=== PATIENT | female | born 1965 | race American Indian/Alaskan Native ===

== ENCOUNTER 2017-10-03 20:59 | Inpatient (IN) | payer MEDICAID ==
[2017-10-03 21:05] VITALS: BMI 21.4
--- NOTE | 2017-10-03 21:34 | ED PDOC ---
Arrival/HPI - General Chief Complaint: GI Problem Time Seen by Provider: 10/03/17 21:04 Historian: Patient - History of Present Illness Narrative History of Present Illness (Text): 10/03/17 21:34 Ines Waters is a 52 year old female, whose past medical history includes stomach cancer currently undergoing chemotherapy, hypertension, and diabetes, who presents to the emergency department complaining of vomiting. Patient states been experiencing intermittent nausea with multiple episodes of vomiting and some abdominal cramping for the past week. Patient states her last round of chemotherapy was 2 weeks ago, but notes she does not usually get nausea or vomiting following chemo. Patient denies any fever, chills, chest pain, shortness of breath, diarrhea, urinary symptoms, back pain, neck pain, headache , dizziness, or any other complaints. Heme/Onc: Dr. Miles Symptom Onset: Gradual Symptom Course: Unchanged Activities at Onset: Light Context: Home Past Medical History - Provider Review Nursing Documentation Reviewed: Yes - Cardiac Hx Hypertension: Yes - Pulmonary Hx Asthma: Yes - Neurological Hx Neurological Disorder: No - HEENT Hx HEENT Disorder: No - Renal Hx Renal Disorder: No - Endocrine/Metabolic Hx Endocrine Disorders: No - Hematological/Oncological Hx Blood Disorders: No - Integumentary Hx Dermatological Disorder: No - Musculoskeletal/Rheumatological Hx Musculoskeletal Disorders: No - Gastrointestinal Hx Gastrointestinal Disorders: Yes Other/Comment: ca stomach. - Genitourinary/Gynecological Hx Genitourinary Disorders: No - Psychiatric Hx Psychophysiologic Disorder: No Hx Substance Use: No Family/Social History - Physician Review Nursing Documentation Reviewed: Yes Family/Social History: Unknown Family HX Smoking Status: Never Smoked Hx Alcohol Use: No Hx Substance Use: No Allergies/Home Meds Allergies/Adverse Reactions: Allergies aspirin Allergy (Verified 10/03/17 21:06) ANAPHYLAXIS Home Medications: Home Meds Medication Instructions Recorded Confirmed Bisoprolol/HCTZ [Ziac 5 MG-6.25 MG] 1 tab PO DAILY 10/03/17 10/03/17 Losartan/Hydrochlorothiazide 1 each PO DAILY 10/03/17 10/03/17 [Losartan-Hctz 100-25 mg Tab] Metformin HCl [Glucophage] 500 mg PO DAILY 10/03/17 10/03/17 No Known Home Med 10/03/17 10/03/17 Omeprazole 40 mg PO DAILY 10/03/17 10/03/17 Oxycodone HCl [Oxycontin] 10 mg PO Q6 PRN 10/03/17 10/03/17 Review of Systems - Physician Review All systems were reviewed & negative as marked: Yes - Review of Systems Constitutional: Normal. absent: Fevers Eyes: Normal ENT: Normal Respiratory: Normal. absent: SOB, Cough Cardiovascular: Normal. absent: Chest Pain Gastrointestinal: Abdominal Pain, Nausea, Vomiting. absent: Diarrhea Genitourinary Female: Normal. absent: Dysuria, Frequency, Hematuria, Urine Output Changes Musculoskeletal: Normal. absent: Back Pain, Neck Pain Skin: Normal. absent: Rash Neurological: Normal. absent: Headache, Dizziness Endocrine: Normal Hemo/Lymphatic: Normal Psychiatric: Normal Physical Exam Vital Signs Reviewed: Yes Vital Signs Temp Pulse Resp BP Pulse Ox 10/03/17 21:11 98.2 F 76 18 169/126 H 100 Temperature: Afebrile Blood Pressure: Hypertensive Pulse: Regular Respiratory Rate: Normal Appearance: Positive for: Well-Appearing, Non-Toxic, Comfortable Pain Distress: None Mental Status: Positive for: Alert and Oriented X 3 - Systems Exam Head: Present: Atraumatic, Normocephalic Pupils: Present: PERRL Extroacular Muscles: Present: EOMI Conjunctiva: Present: Normal Mouth: Present: Moist Mucous Membranes Neck: Present: Normal Range of Motion Respiratory/Chest: Present: Clear to Auscultation, Good Air Exchange. No: Respiratory Distress, Accessory Muscle Use Cardiovascular: Present: Regular Rate and Rhythm, Normal S1, S2. No: Murmurs Abdomen: Present: Tenderness (upper abdomen), Normal Bowel Sounds. No: Distention, Peritoneal Signs, Rebound, Guarding Back: Present: Normal Inspection Upper Extremity: Present: Normal Inspection. No: Cyanosis, Edema Lower Extremity: Present: Normal Inspection. No: Edema Neurological: Present: GCS=15, CN II-XII Intact, Speech Normal Skin: Present: Warm, Dry, Normal Color. No: Rashes Psychiatric: Present: Alert, Oriented x 3, Normal Insight, Normal Concentration Medical Decision Making ED Course and Treatment: 10/03/17 21:34 Impression: 52 year old female complaining of intermittent nausea, vomiting, and some abdominal cramping for 1 week. Plan: -- EKG -- CXR -- Labs, lipase -- IV fluids -- Zofran -- Pepcid -- Morphine -- Reassess and disposition Progress Notes: Reviewed EKG, NSR at 74 bpm. Non-specific T wave changes. 10/03/17 23:11 CXR reviewed, shows no acute processes. 10/04/17 01:42 CT Abdomen and Pelvis shows: Lung bases: Unremarkable. No mass. No consolidation. ABDOMEN: Liver: Hepatic steatosis. Gallbladder and bile ducts: Unremarkable. No calcified stones. No ductal dilation. Pancreas: Unremarkable. No mass. No ductal dilation. Spleen: Unremarkable. No splenomegaly. Adrenals: Unremarkable. No mass. Kidneys and ureters: Unremarkable. No solid mass. No hydronephrosis. Stomach and bowel: Fluid-filled small bowel loops. Small to moderate amount of retained stool in colon. Appendix: No findings to suggest acute appendicitis. PELVIS: Bladder: Unremarkable. No mass. Reproductive: Myomatous uterus. ABDOMEN and PELVIS: Intraperitoneal space: Small amount of perihepatic free fluid. Small amount of perisplenic free fluid. Small to moderate amount of pelvic ascites. No free air. Bones/joints: No acute fracture. No dislocation. Soft tissues: Subcutaneous edema. Vasculature: Unremarkable. No abdominal aortic aneurysm. Lymph nodes: Enlarged left para-aortic lymph node measuring 1.7 CM. IMPRESSION: 1. Small to moderate amount of ascites. 2. Enlarged retroperitoneal lymph node 3. Myomatous uterus. 4. Remainder of findings as above. 10/04/17 01:57 Case discussed with medical insurance verifier civil engineering design draftsperson, who is aware and agrees with plan. 10/04/17 02:[address] Sheree Kyle, who is aware and agrees with plan. Accepts pt in to hospitalist service. Pt will go to [facility] observation for abdominal pain and neutropenia. - Lab Interpretations Lab Results: 10/03/17 21:15 10/03/17 21:15 Lab Results 10/03/17 21:15: WBC 2.0 L*, RBC 4.60, Hgb 11.9 L, Hct 36.0, MCV 78.3 L, MCH 25.9 , MCHC 33.1, RDW 16.9 H, Plt Count 286, MPV 10.1, Gran % 3.0 L, Lymph % (Auto) 51.3 H, Cedar % (Auto) 44.2 H, Eos % (Auto) 1.0 L, Baso % (Auto) 0.5, Gran # 0.06 L, Lymph # (Auto) 1.0 L, Cedar # (Auto) 0.9 H, Eos # (Auto) 0.0, Baso # ( Auto) 0.01, Neutrophils % (Manual) Pending, Lymphocytes % (Manual) Pending, Monocytes % (Manual) Pending 10/03/17 21:15: Sodium 141, Potassium 3.4 L, Chloride 104, Carbon Dioxide 28, Anion Gap 13, BUN 6 L, Creatinine 0.7, Est GFR ( Amer) > 60, Est GFR (Non -Af Amer) > 60, Random Glucose 67 L, Calcium 9.0, Total Bilirubin 0.6, AST 33, ALT 21, Alkaline Phosphatase 48, Total Protein 6.3, Albumin 3.0, Globulin 3.3, Albumin/Globulin Ratio 0.9 L, Lipase 161 I have reviewed the lab results: Yes - RAD Interpretation Radiology Orders: 10/03/17 21:40 CHEST PORTABLE [RAD] Stat 10/04/17 00:06 ABD & PELVIS IV CONTRAST ONLY [CT] Stat Pcmh Specialist: ED Physician - EKG Interpretation Interpreted by ED Physician: Yes Type: 12 lead EKG - Medication Orders Current Medication Orders: Piperacillin Sod/Tazobactam Sod (Zosyn 3.375 In Ns 100ml) 100 mls @ 200 mls/hr IV STAT STA PRN Reason: Protocol Stop: 10/04/17 02:44 Discontinued Medications Famotidine (Pepcid) 20 mg IVP STAT STA Stop: 10/03/17 21:41 Last Admin: 10/03/17 21:58 Dose: 20 mg IVP Administration Document 10/03/17 21:58 AD (Rec: 10/03/17 21:58 AD [id number]) Charges for Administration # of IVP Administrations 1 Sodium Chloride (Sodium Chloride 0.9%) 1,000 mls @ 999 mls/hr IV .Q1H1M STA Stop: 10/03/17 22:40 Last Admin: 10/03/17 21:58 Dose: 999 mls/hr eMAR Start Stop Document 10/03/17 21:58 AD (Rec: 10/03/17 21:58 AD [id number]) Intravenous Solution Start Date 10/03/17 Start Time 21:58 Morphine Sulfate (Morphine) 2 mg IVP STAT STA Stop: 10/03/17 21:41 Last Admin: 10/03/17 22:25 Dose: 2 mg MAR Pain Assessment Document 10/03/17 22:25 AD (Rec: 10/03/17 22:26 AD [id number]) Pain Reassessment Is this a pain reassessment? No IVP Administration Document 10/03/17 22:25 AD (Rec: 10/03/17 22:26 AD [id number]) Charges for Administration # of IVP Administrations 1 Morphine Sulfate (Morphine) 4 mg IVP STAT STA Stop: 10/04/17 00:08 Last Admin: 10/04/17 00:19 Dose: 4 mg MAR Pain Assessment Document 10/04/17 00:19 AD (Rec: 10/04/17 00:19 AD [id number]) Pain Reassessment Is this a pain reassessment? No Presence of Pain Presence of Pain Yes Pain Scale Used Pain Scale Used Numeric Location Pain Location Body Site Abdomen Description Intensity of Pain at present 7 Pain Behavior Facial Grimacing IVP Administration Document 10/04/17 00:19 AD (Rec: 10/04/17 00:19 AD [id number]) Charges for Administration # of IVP Administrations 1 Ondansetron HCl (Zofran Inj) 4 mg IVP ONCE ONE Stop: 10/03/17 21:41 Last Admin: 10/03/17 21:58 Dose: 4 mg IVP Administration Document 10/03/17 21:58 AD (Rec: 10/03/17 21:58 AD [id number]) Charges for Administration # of IVP Administrations 1 - Scribe Statement The provider has reviewed the documentation as recorded by the аТтьяна Truong Provider Scribe Attestation: All medical record entries made by the Scribe were at my direction and personally dictated by me. I have reviewed the chart and agree that the record accurately reflects my personal performance of the history, physical exam, medical decision making, and the department course for this patient. I have also personally directed, reviewed, and agree with the discharge instructions and disposition. Disposition/Present on Arrival - Present on Arrival Any Indicators Present on Arrival: No History of DVT/PE: No History of Uncontrolled Diabetes: No Urinary Catheter: No History of Decub. Ulcer: No History Surgical Site Infection Following: None - Disposition Have Diagnosis and Disposition been Completed?: Yes Diagnosis: Abdominal pain, Neutropenia Disposition: HOSPITALIZED Disposition Time: 02:20 Patient Plan: Observation Patient Problems: Current Active Problems Problem Status Onset Abdominal pain Acute Neutropenia Acute Condition: STABLE Referrals: Iris Dalton MD [Primary Care Provider] - Follow up with primary Forms: [employer] ([place]an)
[2017-10-03] MEDS ORDERED: Sodium Chloride 0.9% 1,000 ML IV STA (21:40)
[2017-10-03 21:54] LABS: HEMOGLOBIN 11.9 g/dL (12.0-16.0); MEAN CELL VOLUME 78.3 fl (80.0-105.0); MEAN CORPUSCULAR HEMOGLOBIN 25.9 pg (25.0-35.0); MEAN CORPUSCULAR HGB CONC 33.1 g/dl (31.0-37.0); MEAN PLATELET VOLUME 10.1 fl (7.0-11.0); PLATELET COUNT 286 10^3/uL (120.0-450.0); RED CELL DISTRIBUTION WIDTH 16.9 % (11.5-14.5)
[2017-10-03 21:58] LABS: ALB/GLOB RATIO 0.9 (1.1-1.8); ALT/SGPT 21 U/L (7-56); AST/SGOT 33 U/L (14-36); BLOOD UREA NITROGEN 6 mg/dL (7-21); GFR AFRICAN-AMERICAN > 60; GFR NON-AFRICAN AMERICAN > 60; LIPASE 161 U/L (23-300)
[2017-10-03 23:38] LABS: BASO # 0.01 K/mm3 (0.0-2.0); BASO % 0.5 % (0.0-3.0); GRAN # 0.06 (1.4-6.5); LYMPH % 51.3 % (22.0-35.0); MONO # 0.9 (0.1-0.6); MONO % 44.2 % (1.0-6.0)
[2017-10-04] MEDS ORDERED: Iohexol 350 MG/100 ML VIAL ONE (00:19)
--- NOTE | 2017-10-04 00:59 | CT ---
EXAM: CT Abdomen and Pelvis With Intravenous Contrast CLINICAL HISTORY: 52 years old, female; Pain; Abdominal pain TECHNIQUE: Axial computed tomography images of the abdomen and pelvis with intravenous contrast. All CT scans at this facility use one or more dose reduction techniques, viz.: automated exposure control; ma/kV adjustment per patient size (including targeted exams where dose is matched to indication; i.e. head); or iterative reconstruction technique. Coronal and sagittal reformatted images were created and reviewed. CONTRAST: 100 mL of omnipaque administered intravenously. COMPARISON: No relevant prior studies available. FINDINGS: Lung bases: Unremarkable. No mass. No consolidation. ABDOMEN: Liver: Hepatic steatosis. Gallbladder and bile ducts: Unremarkable. No calcified stones. No ductal dilation. Pancreas: Unremarkable. No mass. No ductal dilation. Spleen: Unremarkable. No splenomegaly. Adrenals: Unremarkable. No mass. Kidneys and ureters: Unremarkable. No solid mass. No hydronephrosis. Stomach and bowel: Fluid-filled small bowel loops. Small to moderate amount of retained stool in colon. Appendix: No findings to suggest acute appendicitis. PELVIS: Bladder: Unremarkable. No mass. Reproductive: Myomatous uterus. ABDOMEN and PELVIS: Intraperitoneal space: Small amount of perihepatic free fluid. Small amount of perisplenic free fluid. Small to moderate amount of pelvic ascites. No free air. Bones/joints: No acute fracture. No dislocation. Soft tissues: Subcutaneous edema. Vasculature: Unremarkable. No abdominal aortic aneurysm. Lymph nodes: Enlarged left para-aortic lymph node measuring 1.7 CM. IMPRESSION: 1. Small to moderate amount of ascites. 2. Enlarged retroperitoneal lymph node 3. Myomatous uterus. 4. Remainder of findings as above.
[2017-10-04] MEDS ORDERED: Piperacillin/Tazobact 3.375 gm 100 ML IV STA (02:15)
[2017-10-04 02:47] LABS: ATYPICAL LYMPHOCYTE 6 % (0.0-0.0); BAND 4 % (0-2); EOSINOPHIL 1 % (0.0-3.0); LYMPHOCYTE 42 % (22.0-35.0); MONOCYTE 37 % (1.0-6.0); NEUTROPHIL 10 % (50.0-70.0); PLATELET ESTIMATE NORMAL (NORMAL)
--- NOTE | 2017-10-04 02:56 | CP.PCM.HP ---
History of Present Illness - History of Present Illness History of Present Illness: Katelin Guardado, PGY1, H&P for Dr Kadie Kyle: CC: "some red blood in vomit" 52 year old female, whose past medical history includes stomach cancer currently undergoing chemotherapy (last chemo 2 weeks ago), hypertension, and diabetes, presents for blood streaked vomit that started today. Pt states that she has chronic nausea, vomiting, and LUQ abdominal pain, related to her stomach cancer and current chemo. After a week of worsening vomit, she noted some bright red blood in her vomit yesterday, making her come to ED. Pt states that she had been retching for some time with decreased appetite and poor PO intake for past week. Denies fever, chills, cp, sob, diarrhea, melena, hematochezia, leg swelling, dizziness. Reports mild dysuria. In ED, pt had mildly elevated BP, wbc 2.0 neuts 10%, bandemia 4, hgb 11.9, MCV 78.3, gran 3%, K 3.4, BG 67. Given pepcid, morphine 4, zofran, 1L NS bolus, zosyn Heme/Onc: Dr. Miles PMD: Iris Dalton (SHARON) PMH: stomach cancer (stage 4), HTN, DM PSH: denies All: ASA - adams skin FH: Mother, COPD SH: lives with mom, dad. Denies etoh/tobacco/drug use. Home meds: bisoprolol/hctz, losartan/hctz, metformin, oxycodone, omeprazole Present on Admission - Present on Admission Any Indicators Present on Admission: No History of DVT/PE: No History of Uncontrolled Diabetes: No Urinary Catheter: No Decubitus Ulcer Present: No Review of Systems - Review of Systems All systems: reviewed and no additional remarkable complaints except Review of Systems: as per HPI Past Patient History - Past Social History Smoking Status: Never Smoked - CARDIAC Hx Hypertension: Yes - PULMONARY Hx Asthma: Yes - NEUROLOGICAL Hx Neurological Disorder: No - HEENT Hx HEENT Problems: No - RENAL Hx Chronic Kidney Disease: No - ENDOCRINE/METABOLIC Hx Endocrine Disorders: No - HEMATOLOGICAL/ONCOLOGICAL Hx Blood Disorders: No - INTEGUMENTARY Hx Dermatological Problems: No - MUSCULOSKELETAL/RHEUMATOLOGICAL Hx Musculoskeletal Disorders: No - GASTROINTESTINAL Hx Gastrointestinal Disorders: Yes Other/Comment: ca stomach. - GENITOURINARY/GYNECOLOGICAL Hx Genitourinary Disorders: No - PSYCHIATRIC Hx Psychophysiologic Disorder: No Hx Substance Use: No - SURGICAL HISTORY Hx Surgeries: No Meds Allergies/Adverse Reactions: Allergies Allergy/AdvReac Type Severity Reaction Status Date / Time aspirin Allergy ANAPHYLAXIS Verified 10/03/17 21:06 Physical Exam - Constitutional Appears: Non-toxic, No Acute Distress - Head Exam Head Exam: ATRAUMATIC, NORMOCEPHALIC - Eye Exam Eye Exam: EOMI, PERRL. absent: Conjunctival injection, Nystagmus, Scleral icterus Pupil Exam: NORMAL ACCOMODATION, PERRL. absent: Irregular, Miosis, Mydriatic, Unequal - ENT Exam ENT Exam: Mucous Membranes Dry - Neck Exam Neck exam: Positive for: Full Rom - Respiratory Exam Respiratory Exam: Clear to Auscultation Bilateral, NORMAL BREATHING PATTERN. absent: Accessory Muscle Use, Rales, Rhonchi, Wheezes, Stridor - Cardiovascular Exam Cardiovascular Exam: RRR, +S1, +S2. absent: Systolic Murmur - GI/Abdominal Exam GI & Abdominal Exam: Normal Bowel Sounds, Soft. absent: Distended, Firm, Guarding, Mass, Organomegaly, Rebound, Rigid, Tenderness Additional comments: no fluid wave or ascites appreciated/ no caput medusae - Extremities Exam Extremities exam: Positive for: normal inspection. Negative for: calf tenderness, pedal edema - Back Exam Back exam: NORMAL INSPECTION - Neurological Exam Neurological exam: Alert, Oriented x3 - Psychiatric Exam Psychiatric exam: Normal Affect, Normal Mood - Skin Skin Exam: Dry, Normal Color, Warm Results - Vital Signs Recent Vital Signs: Last Vital Signs Temp 98.2 F 10/03/17 21:11 Pulse 74 10/04/17 02:34 Resp 18 10/04/17 02:34 BP 148/91 H 10/04/17 02:34 Pulse Ox 100 10/04/17 02:34 - Labs Result Diagrams: 10/03/17 21:15 10/03/17 21:15 Assessment & Plan - Assessment and Plan (Free Text) Assessment: 52 year old female with PMH stomach cancer (currently on chemotherapy, last one 2 weeks ago), HTN, DM, chronic nausea/vomiting and abdominal pain, admitted for n/v/abdominal pain: Generalized weakness/fatigue and nausea/vomitin/2 chemotherapy SE, ruled out anemia 2/2 vomiting up mild red blood, unlikely SBP - Zofran prn - ANC 280 x 10^3, neutropenic - CT abd pelvis: Small to moderate amount of ascites. Enlarged retroperitoneal lymph node - Neutropenic precautions - coags - Carb consistent diet - If does not tolerate diet, consider IVF - Heme Onc consulted. F/u recs - UA, Ucx, Blood culutre, CXR - Zosyn - procal Hx of HTN: - elevated BP - hydralazine 1 time dose - resume home meds - cont to monitor Hx of DM: - ISS med PPX: Omeprazole, SCDs Diet: Carb Consistent Diet Discussed with Dr Kadie Kyle. - Date & Time Date: 10/04/17 Time: 05:43
[2017-10-04] MEDS ORDERED: Dextrose 50% SYRINGE Inj (50 ml) IVP PRN (05:34)
[2017-10-04] MEDS: Potassium Chloride 20 mEq ER Tab PO STA ×2 (05:58→06:09)
[2017-10-04] MEDS ORDERED: Pantoprazole 40 mg EC Tab PO SCH (06:00)
[2017-10-04 08:44] LABS: BASO # 0.02 K/mm3 (0.0-2.0); BASO % 0.9 % (0.0-3.0); EOS % 0.9 % (1.5-5.0); GRAN # 0.01 (1.4-6.5); GRAN % 0.4 % (50.0-68.0); HEMOGLOBIN 12.2 g/dL (12.0-16.0); LYMPH # 0.8 (1.2-3.4); LYMPH % 35.8 % (22.0-35.0); MEAN CELL VOLUME 79.1 fl (80.0-105.0); MEAN CORPUSCULAR HEMOGLOBIN 25.7 pg (25.0-35.0); MEAN CORPUSCULAR HGB CONC 32.5 g/dl (31.0-37.0); MEAN PLATELET VOLUME 10.2 fl (7.0-11.0); MONO # 1.4 (0.1-0.6); RBC 4.74 10^6/uL (3.5-6.1)
[2017-10-04 08:50] LABS: INR 1.07 (0.93-1.08); PROTHROMBIN TIME 12.3 SECONDS (9.4-12.5)
[2017-10-04 08:52] LABS: ALB/GLOB RATIO 0.9 (1.1-1.8); ALT/SGPT 24 U/L (7-56); AST/SGOT 30 U/L (14-36); BLOOD UREA NITROGEN 5 mg/dL (7-21); CALCIUM 8.4 mg/dL (8.4-10.5); GFR AFRICAN-AMERICAN > 60; GFR NON-AFRICAN AMERICAN > 60
[2017-10-04 08:54] LABS: WHITE BLOOD COUNT 2.3 10^3/ul (4.5-11.0)
[2017-10-04] MEDS: Insulin Lispro (humaLOG) LOW Coverage SC SCH ×3 (09:21→22:10)
[2017-10-04] MEDS: Piperacillin/Tazobact 3.375 gm 100 ML IVPB SCH ×2 (09:41→14:47)
--- NOTE | 2017-10-04 09:50 | CARD ---
APPROVED REPORT EKG Measurement Heart [id number] ME [id number] <Conclusion> Sinus rhythm with short ME Nonspecific T wave abnormality
--- NOTE | 2017-10-04 10:05 | RAD ---
HISTORY: vomiting COMPARISON: No prior. FINDINGS: LUNGS: No active pulmonary disease. PLEURA: No significant pleural effusion identified, no pneumothorax apparent. CARDIOVASCULAR: Normal heart size. Right central venous infusion port. . OSSEOUS STRUCTURES: No significant abnormalities. VISUALIZED UPPER ABDOMEN: Normal. OTHER FINDINGS: None. IMPRESSION: No infiltrate. Right central venous infusion port.
[2017-10-04 15:14] LABS: PH,URINE 7.5 (4.7-8.0); URINE BILIRUBIN NEGATIVE (NEGATIVE); URINE BLOOD NEGATIVE (NEGATIVE); URINE GLUCOSE (UA) NEGATIVE (NEGATIVE); URINE LEUKOCYTE ESTERASE NEGATIVE Leu/uL (NEGATIVE); URINE PROTEIN NEGATIVE mg/dL (<30 mg/dL); URINE UROBILINOGEN 0.2 E.U./dL (<1 E.U./dL)
[2017-10-04 15:19] LABS: URINE APPEARANCE CLEAR (CLEAR); URINE COLOR LIGHT YELLOW (YELLOW)
[2017-10-04] MEDS: oxyCODONE 10 mg Immediate Release Tab PO PRN (18:52)
[2017-10-04] MEDS: Bisoprolol/Hctz [Ziac 5-6.25 Mg] (HOME MED) PO SCH (18:59)
[2017-10-04] MEDS: Pantoprazole 40 mg EC Tab PO SCH (19:02)
--- NOTE | 2017-10-05 03:06 | CP.PCM.CON ---
History of Present Illness - History of Present Illness History of Present Illness: 52 year old male with a history of stage IV gastric cancer dx 01/2016 on chemotherapy, presenting for nausea/vomiting, dehydration, found to be neutropenic and anemic. She received docetaxel and Cyramza about 2 weeks ago. She notes to increasing nausea and vomiting. She reports to blood streaked sputum. She denies fevers and chills. Past medical history: DM, HTN, stage IV gastric cancer Past surgical history: Portacath Family history: Denies tobacco, alcohol, and illicit drug use. Allergies: Aspirin Review of systems: All remaining review of systems including HEENT, cardiovascular, respiratory, gastrointestinal, genitourinary, musculoskeletal, dermatologic, neurologic, and psychiatric are negative unless mentioned in the HPI. Past Patient History - Past Social History Smoking Status: Never Smoked - CARDIAC Hx Hypertension: Yes - PULMONARY Hx Asthma: Yes - NEUROLOGICAL Hx Neurological Disorder: No - HEENT Hx HEENT Problems: No - RENAL Hx Chronic Kidney Disease: No - ENDOCRINE/METABOLIC Hx Endocrine Disorders: No - HEMATOLOGICAL/ONCOLOGICAL Hx Blood Disorders: No - INTEGUMENTARY Hx Dermatological Problems: No - MUSCULOSKELETAL/RHEUMATOLOGICAL Hx Musculoskeletal Disorders: No - GASTROINTESTINAL Hx Gastrointestinal Disorders: Yes Other/Comment: ca stomach. - GENITOURINARY/GYNECOLOGICAL Hx Genitourinary Disorders: No - PSYCHIATRIC Hx Psychophysiologic Disorder: No Hx Substance Use: No - SURGICAL HISTORY Hx Surgeries: No Meds Allergies/Adverse Reactions: Allergies Allergy/AdvReac Type Severity Reaction Status Date / Time aspirin Allergy ANAPHYLAXIS Verified 10/03/17 21:06 - Medications Medications: Current Medications Acetaminophen (Tylenol 325mg Tab) 650 mg PO Q6H PRN PRN Reason: Pain, moderate (4-7) Dextrose (Dextrose 50% Inj) 25 ml IVP ONCE PRN PRN Reason: Hypoglycemia Hydrochlorothiazide (Hydrodiuril) 25 mg PO DAILY [facility] Last Admin: 10/04/17 20:50 Dose: 25 mg Insulin Human Lispro (Humalog Low) 0 units SC ACHS [facility] PRN Reason: Protocol Last Admin: 10/04/17 17:20 Dose: Not Given Losartan Potassium (Cozaar) 100 mg PO DAILY [facility] Last Admin: 10/04/17 14:47 Dose: 100 mg Bisoprolol/Hctz [ Ziac 5-6.25 Mg] ( Home Med) 1 tab PO DAILY [facility] Last Admin: 10/04/17 18:59 Dose: Not Given Ondansetron HCl (Zofran Inj) 4 mg IVP Q6H PRN PRN Reason: Nausea/Vomiting Oxycodone HCl (Oxycodone Immediate Release Tab) 10 mg PO Q6 PRN PRN Reason: Pain, Mild (1-3) Stop: 10/07/17 05:22 Last Admin: 10/04/17 18:52 Dose: 10 mg Pantoprazole Sodium (Protonix Ec Tab) 40 mg PO BID [facility] Last Admin: 10/04/17 19:02 Dose: 40 mg Physical Exam - Head Exam Head Exam: ATRAUMATIC - Eye Exam Eye Exam: Normal appearance - ENT Exam ENT Exam: Mucous Membranes Dry - Respiratory Exam Respiratory Exam: NORMAL BREATHING PATTERN - Cardiovascular Exam Cardiovascular Exam: +S1, +S2 - GI/Abdominal Exam GI & Abdominal Exam: Normal Bowel Sounds - Extremities Exam Extremities exam: Positive for: normal inspection - Neurological Exam Neurological exam: Oriented x3 - Psychiatric Exam Psychiatric exam: Normal Affect, Normal Mood - Skin Skin Exam: Warm Results - Vital Signs Recent Vital Signs: Last Vital Signs Temp 98.6 F 10/04/17 22:00 Pulse 85 10/04/17 22:00 Resp 20 10/04/17 22:00 BP 119/80 10/04/17 23:50 Pulse Ox 96 10/04/17 22:00 - Labs Result Diagrams: 10/04/17 05:22 10/04/17 06:20 Labs: Laboratory Results - last 24 hr 10/04/17 10/04/17 10/04/17 05:22 06:20 06:20 WBC 2.3 L* RBC 4.74 Hgb 12.2 Hct 37.5 MCV 79.1 L MCH 25.7 MCHC 32.5 RDW 17.0 H Plt Count 266 MPV 10.2 Gran % 0.4 L Lymph % (Auto) 35.8 H [place] % (Auto) 62.0 H Eos % (Auto) 0.9 L Baso % (Auto) 0.9 Gran # 0.01 L Lymph # (Auto) 0.8 L [place] # (Auto) 1.4 H Eos # (Auto) 0.0 Baso # (Auto) 0.02 PT INR APTT Sodium 141 Potassium 3.2 L Chloride 103 Carbon Dioxide 27 Anion Gap 14 BUN 5 L Creatinine 0.6 L Est GFR ( Amer) > 60 Est GFR (Non-Af Amer) > 60 POC Glucose (mg/dL) Random Glucose 74 Calcium 8.4 Total Bilirubin 0.5 AST 30 ALT 24 Alkaline Phosphatase 46 Total Protein 6.2 Albumin 3.0 Globulin 3.3 Albumin/Globulin Ratio 0.9 L Procalcitonin < 0.05 L Urine Color Urine Appearance Urine pH Ur Specific [place] Urine Protein Urine Glucose (UA) Urine Ketones Urine Blood Urine Nitrate Urine Bilirubin Urine Urobilinogen Ur Leukocyte Esterase 10/04/17 10/04/17 10/04/17 06:35 07:00 11:41 WBC RBC Hgb Hct MCV MCH MCHC RDW Plt Count MPV Gran % Lymph % (Auto) [place] % (Auto) Eos % (Auto) Baso % (Auto) Gran # Lymph # (Auto) [place] # (Auto) Eos # (Auto) Baso # (Auto) PT 12.3 INR 1.07 APTT 31.0 Sodium Potassium Chloride Carbon Dioxide Anion Gap BUN Creatinine Est GFR ( Amer) Est GFR (Non-Af Amer) POC Glucose (mg/dL) 71 76 Random Glucose Calcium Total Bilirubin AST ALT Alkaline Phosphatase Total Protein Albumin Globulin Albumin/Globulin Ratio Procalcitonin Urine Color Urine Appearance Urine pH Ur Specific [place] Urine Protein Urine Glucose (UA) Urine Ketones Urine Blood Urine Nitrate Urine Bilirubin Urine Urobilinogen Ur Leukocyte Esterase 10/04/17 10/04/17 10/04/17 14:45 16:19 21:32 WBC RBC Hgb Hct MCV MCH MCHC RDW Plt Count MPV Gran % Lymph % (Auto) [place] % (Auto) Eos % (Auto) Baso % (Auto) Gran # Lymph # (Auto) [place] # (Auto) Eos # (Auto) Baso # (Auto) PT INR APTT Sodium Potassium Chloride Carbon Dioxide Anion Gap BUN Creatinine Est GFR ( Amer) Est GFR (Non-Af Amer) POC Glucose (mg/dL) 90 70 Random Glucose Calcium Total Bilirubin AST ALT Alkaline Phosphatase Total Protein Albumin Globulin Albumin/Globulin Ratio Procalcitonin Urine Color Light yellow Urine Appearance Clear Urine pH 7.5 Ur Specific [place] 1.010 Urine Protein Negative Urine Glucose (UA) Negative Urine Ketones Trace H Urine Blood Negative Urine Nitrate Negative Urine Bilirubin Negative Urine Urobilinogen 0.2 Ur Leukocyte Esterase Negative 10/04/17 23:25 WBC RBC Hgb Hct MCV MCH MCHC RDW Plt Count MPV Gran % Lymph % (Auto) [place] % (Auto) Eos % (Auto) Baso % (Auto) Gran # Lymph # (Auto) [place] # (Auto) Eos # (Auto) Baso # (Auto) PT INR APTT Sodium Potassium Chloride Carbon Dioxide Anion Gap BUN Creatinine Est GFR ( Amer) Est GFR (Non-Af Amer) POC Glucose (mg/dL) 89 Random Glucose Calcium Total Bilirubin AST ALT Alkaline Phosphatase Total Protein Albumin Globulin Albumin/Globulin Ratio Procalcitonin Urine Color Urine Appearance Urine pH Ur Specific [place] Urine Protein Urine Glucose (UA) Urine Ketones Urine Blood Urine Nitrate Urine Bilirubin Urine Urobilinogen Ur Leukocyte Esterase Assessment & Plan (1) Neutropenia Assessment and Plan: secondary to chemotherapy will start Granix Status: Acute (2) Anemia Assessment and Plan: mild secondary to chemotherapy anemia of chronic disease from malignancy Status: Acute (3) Gastric cancer Assessment and Plan: stage IV on chemotherapy outpatient treatment Thank you for this interesting consult. Status: Acute
[2017-10-05 07:08] LABS: BASO # 0.01 K/mm3 (0.0-2.0); BASO % 0.2 % (0.0-3.0); EOS % 0.4 % (1.5-5.0); GRAN # 1.08 (1.4-6.5); GRAN % 21.1 % (50.0-68.0); HEMOGLOBIN 11.4 g/dL (12.0-16.0); LYMPH # 1.1 (1.2-3.4); LYMPH % 21.8 % (22.0-35.0); MEAN CELL VOLUME 78.7 fl (80.0-105.0); MEAN CORPUSCULAR HEMOGLOBIN 25.6 pg (25.0-35.0); MEAN CORPUSCULAR HGB CONC 32.6 g/dl (31.0-37.0); MEAN PLATELET VOLUME 9.8 fl (7.0-11.0); MONO # 2.9 (0.1-0.6); MONO % 56.5 % (1.0-6.0); RBC 4.45 10^6/uL (3.5-6.1); RED CELL DISTRIBUTION WIDTH 17.2 % (11.5-14.5); WHITE BLOOD COUNT 5.1 10^3/ul (4.5-11.0)
[2017-10-05 07:10] LABS: ALB/GLOB RATIO 0.9 (1.1-1.8); ALBUMIN 2.7 g/dL (3.0-4.8); ALT/SGPT 22 U/L (7-56); AST/SGOT 32 U/L (14-36); BLOOD UREA NITROGEN 4 mg/dL (7-21); CALCIUM 8.4 mg/dL (8.4-10.5); GFR AFRICAN-AMERICAN > 60; GFR NON-AFRICAN AMERICAN > 60; INR 1.23 (0.93-1.08); PARTIAL THROMBOPLASTIN TIME 30.2 Seconds (25.1-36.5); PROTHROMBIN TIME 14.2 SECONDS (9.4-12.5)
[2017-10-05] MEDS: Insulin Lispro (humaLOG) LOW Coverage SC SCH ×4 (07:54→22:32)
[2017-10-05] MEDS ORDERED: Potassium Chloride 20 mEq ER Tab PO STA (08:18)
[2017-10-05] MEDS: Bisoprolol/Hctz [Ziac 5-6.25 Mg] (HOME MED) PO SCH (13:57)
[2017-10-05] MEDS: Pantoprazole 40 mg EC Tab PO SCH ×2 (14:00→18:11)
[2017-10-05] MEDS: Sodium Chloride 0.9% 1,000 ML IV SCH (14:01)
--- NOTE | 2017-10-05 14:28 | CP.PCM.CON ---
<Laurie Mendoza - Last Filed: 10/05/17 14:15> History of Present Illness - History of Present Illness History of Present Illness: GI Fellow PGY 4 Consult Note This is a 52 year old female with a past medical history of stomach cancer stage IV diagnosed 01/2016 at [facility] currently undergoing chemotherapy (last chemo 2 weeks ago), hypertension, and diabetes, presents for intractable nausea and vomiting and one episode of hematemesis. Pt reports she has received two cycles of chemo and after a week of worsening vomit, she noted some bright red blood in her vomit yesterday, making her come to ED. Pt states that she had been retching for some time with decreased appetite and poor PO intake for past week. Denies fever, chills, cp, sob, diarrhea, melena, hematochezia, leg swelling, dizziness. Pt had mildly elevated BP, wbc 2.0 neuts 10%, bandemia 4, hgb 11.9, MCV 78.3, gran 3%, K 3.4, BG 67. Given pepcid, morphine 4, zofran, 1L NS bolus, zosyn Ros: A 12pt ROS was negative except as above PMH: stomach cancer (stage 4), HTN, DM PSH: denies FH: COPD SH: Denies etoh/tobacco/drug use. Past Patient History - Past Social History Smoking Status: Never Smoked - CARDIAC Hx Hypertension: Yes - PULMONARY Hx Asthma: Yes - NEUROLOGICAL Hx Neurological Disorder: No - HEENT Hx HEENT Problems: No - RENAL Hx Chronic Kidney Disease: No - ENDOCRINE/METABOLIC Hx Endocrine Disorders: No - HEMATOLOGICAL/ONCOLOGICAL Hx Blood Disorders: No - INTEGUMENTARY Hx Dermatological Problems: No - MUSCULOSKELETAL/RHEUMATOLOGICAL Hx Musculoskeletal Disorders: No - GASTROINTESTINAL Hx Gastrointestinal Disorders: Yes Other/Comment: ca stomach. - GENITOURINARY/GYNECOLOGICAL Hx Genitourinary Disorders: No - PSYCHIATRIC Hx Psychophysiologic Disorder: No Hx Substance Use: No - SURGICAL HISTORY Hx Surgeries: No Meds Allergies/Adverse Reactions: Allergies Allergy/AdvReac Type Severity Reaction Status Date / Time aspirin Allergy ANAPHYLAXIS Verified 10/03/17 21:06 - Medications Medications: Current Medications Acetaminophen (Tylenol 325mg Tab) 650 mg PO Q6H PRN PRN Reason: Pain, moderate (4-7) Dextrose (Dextrose 50% Inj) 25 ml IVP ONCE PRN PRN Reason: Hypoglycemia Hydrochlorothiazide (Hydrodiuril) 25 mg PO DAILY [facility] Last Admin: 10/05/17 09:13 Dose: 25 mg Sodium Chloride (Sodium Chloride 0.9%) 1,000 mls @ 100 mls/hr IV .Q10H [facility] Last Admin: 10/05/17 14:01 Dose: 100 mls/hr Insulin Human Lispro (Humalog Low) 0 units SC ACHS [facility] PRN Reason: Protocol Last Admin: 10/05/17 13:57 Dose: Not Given Losartan Potassium (Cozaar) 100 mg PO DAILY [facility] Last Admin: 10/05/17 08:40 Dose: 100 mg Bisoprolol/Hctz [ Ziac 5-6.25 Mg] ( Home Med) 1 tab PO DAILY [facility] Last Admin: 10/05/17 13:57 Dose: Not Given Ondansetron HCl (Zofran Inj) 4 mg IVP Q6H PRN PRN Reason: Nausea/Vomiting Oxycodone HCl (Oxycodone Immediate Release Tab) 10 mg PO Q6 PRN PRN Reason: Pain, Mild (1-3) Stop: 10/07/17 05:22 Last Admin: 10/04/17 18:52 Dose: 10 mg Pantoprazole Sodium (Protonix Ec Tab) 40 mg PO BID [facility] Last Admin: 10/05/17 14:00 Dose: 40 mg Physical Exam - Constitutional Appears: Non-toxic, No Acute Distress, Chronically Ill Additional comments: weak appearing - Head Exam Head Exam: ATRAUMATIC, NORMAL INSPECTION, NORMOCEPHALIC - Eye Exam Eye Exam: EOMI, Normal appearance, PERRL Pupil Exam: PERRL - ENT Exam ENT Exam: Mucous Membranes Dry - Neck Exam Neck exam: Positive for: Full Rom - Respiratory Exam Respiratory Exam: Clear to Auscultation Bilateral, NORMAL BREATHING PATTERN - Cardiovascular Exam Cardiovascular Exam: RRR, +S1, +S2 - GI/Abdominal Exam GI & Abdominal Exam: Normal Bowel Sounds, Soft. absent: Distended, Organomegaly - Rectal Exam Rectal Exam: Deferred - Extremities Exam Extremities exam: Positive for: full ROM, normal inspection - Back Exam Back exam: NORMAL INSPECTION - Neurological Exam Neurological exam: Alert, Oriented x3 - Psychiatric Exam Psychiatric exam: Normal Affect, Normal Mood - Skin Skin Exam: Dry, Intact, Normal Color, Warm Results - Vital Signs Recent Vital Signs: Last Vital Signs Temp 98.6 F 10/04/17 22:00 Pulse 85 10/04/17 22:00 Resp 20 10/04/17 22:00 BP 119/80 10/04/17 23:50 Pulse Ox 96 10/04/17 22:00 - Labs Result Diagrams: 10/05/17 06:00 10/05/17 06:00 Labs: Laboratory Results - last 24 hr 10/04/17 10/04/17 10/04/17 14:45 16:19 21:32 WBC RBC Hgb Hct MCV MCH MCHC RDW Plt Count MPV Gran % Lymph % (Auto) [place] % (Auto) Eos % (Auto) Baso % (Auto) Gran # Lymph # (Auto) [place] # (Auto) Eos # (Auto) Baso # (Auto) PT INR APTT Sodium Potassium Chloride Carbon Dioxide Anion Gap BUN Creatinine Est GFR ( Amer) Est GFR (Non-Af Amer) POC Glucose (mg/dL) 90 70 Random Glucose Calcium Magnesium Total Bilirubin AST ALT Alkaline Phosphatase Total Protein Albumin Globulin Albumin/Globulin Ratio Urine Color Light yellow Urine Appearance Clear Urine pH 7.5 Ur Specific [place] 1.010 Urine Protein Negative Urine Glucose (UA) Negative Urine Ketones Trace H Urine Blood Negative Urine Nitrate Negative Urine Bilirubin Negative Urine Urobilinogen 0.2 Ur Leukocyte Esterase Negative 10/04/17 10/05/17 10/05/17 23:25 05:37 06:00 WBC RBC Hgb Hct MCV MCH MCHC RDW Plt Count MPV Gran % Lymph % (Auto) [place] % (Auto) Eos % (Auto) Baso % (Auto) Gran # Lymph # (Auto) [place] # (Auto) Eos # (Auto) Baso # (Auto) PT 14.2 H INR 1.23 H APTT 30.2 Sodium Potassium Chloride Carbon Dioxide Anion Gap BUN Creatinine Est GFR ( Amer) Est GFR (Non-Af Amer) POC Glucose (mg/dL) 89 66 Random Glucose Calcium Magnesium Total Bilirubin AST ALT Alkaline Phosphatase Total Protein Albumin Globulin Albumin/Globulin Ratio Urine Color Urine Appearance Urine pH Ur Specific [place] Urine Protein Urine Glucose (UA) Urine Ketones Urine Blood Urine Nitrate Urine Bilirubin Urine Urobilinogen Ur Leukocyte Esterase 10/05/17 10/05/17 10/05/17 06:00 06:00 07:30 WBC 5.1 D RBC 4.45 Hgb 11.4 L Hct 35.0 L MCV 78.7 L MCH 25.6 MCHC 32.6 RDW 17.2 H Plt Count 260 MPV 9.8 Gran % 21.1 L Lymph % (Auto) 21.8 L [place] % (Auto) 56.5 H Eos % (Auto) 0.4 L Baso % (Auto) 0.2 Gran # 1.08 L Lymph # (Auto) 1.1 L [place] # (Auto) 2.9 H Eos # (Auto) 0.0 Baso # (Auto) 0.01 PT INR APTT Sodium 139 Potassium 3.3 L Chloride 105 Carbon Dioxide 28 Anion Gap 9 L BUN 4 L Creatinine 0.8 Est GFR ( Amer) > 60 Est GFR (Non-Af Amer) > 60 POC Glucose (mg/dL) Random Glucose 98 Calcium 8.4 Magnesium 1.6 L Total Bilirubin 0.6 AST 32 ALT 22 Alkaline Phosphatase 51 Total Protein 5.8 Albumin 2.7 L Globulin 3.1 Albumin/Globulin Ratio 0.9 L Urine Color Urine Appearance Urine pH Ur Specific [place] Urine Protein Urine Glucose (UA) Urine Ketones Urine Blood Urine Nitrate Urine Bilirubin Urine Urobilinogen Ur Leukocyte Esterase 10/05/17 10/05/17 10/05/17 08:15 10:13 11:48 WBC RBC Hgb Hct MCV MCH MCHC RDW Plt Count MPV Gran % Lymph % (Auto) [place] % (Auto) Eos % (Auto) Baso % (Auto) Gran # Lymph # (Auto) [place] # (Auto) Eos # (Auto) Baso # (Auto) PT INR APTT Sodium Potassium Chloride Carbon Dioxide Anion Gap BUN Creatinine Est GFR ( Amer) Est GFR (Non-Af Amer) POC Glucose (mg/dL) 69 108 98 Random Glucose Calcium Magnesium Total Bilirubin AST ALT Alkaline Phosphatase Total Protein Albumin Globulin Albumin/Globulin Ratio Urine Color Urine Appearance Urine pH Ur Specific [place] Urine Protein Urine Glucose (UA) Urine Ketones Urine Blood Urine Nitrate Urine Bilirubin Urine Urobilinogen Ur Leukocyte Esterase Assessment & Plan - Assessment and Plan (Free Text) Assessment: This is a 52yM with hx of stomach cancer stage IV on chemotherapy. 1. Intractable nausea and vomiting 2. Hematemesis resolved likely from lori camacho tear 3. Stomach cancer on chemotherapy Plan: -Continue supportive care with pain control and anti-emetics -Nausea and vomiting likely from chemotherapy -Pt with emesis, nonbloody at this time, H/H stable -Monitor H/H, no active bleeding, one episode of hematemesis likely from lori camacho tear -No plan for EGD at this time -Please call with any questions or concerns <Jennifer Schneider - Last Filed: 10/05/17 15:49> Meds - Medications Medications: Current Medications Acetaminophen (Tylenol 325mg Tab) 650 mg PO Q6H PRN PRN Reason: Pain, moderate (4-7) Dextrose (Dextrose 50% Inj) 25 ml IVP ONCE PRN PRN Reason: Hypoglycemia Hydrochlorothiazide (Hydrodiuril) 25 mg PO DAILY [facility] Last Admin: 10/05/17 09:13 Dose: 25 mg Sodium Chloride (Sodium Chloride 0.9%) 1,000 mls @ 100 mls/hr IV .Q10H [facility] Last Admin: 10/05/17 14:01 Dose: 100 mls/hr Magnesium Sulfate/Dextrose (Magnesium Sulfate 1 Gm/100 Ml D5w) 1 gm in 100 mls @ 100 mls/hr IVPB ONCE ONE Stop: 10/05/17 15:49 Insulin Human Lispro (Humalog Low) 0 units SC ACHS [facility] PRN Reason: Protocol Last Admin: 10/05/17 13:57 Dose: Not Given Losartan Potassium (Cozaar) 100 mg PO DAILY [facility] Last Admin: 10/05/17 08:40 Dose: 100 mg Bisoprolol/Hctz [ Ziac 5-6.25 Mg] ( Home Med) 1 tab PO DAILY [facility] Last Admin: 10/05/17 13:57 Dose: Not Given Ondansetron HCl (Zofran Inj) 4 mg IVP Q6H PRN PRN Reason: Nausea/Vomiting Oxycodone HCl (Oxycodone Immediate Release Tab) 10 mg PO Q6 PRN PRN Reason: Pain, Mild (1-3) Stop: 10/07/17 05:22 Last Admin: 10/05/17 14:54 Dose: 10 mg Pantoprazole Sodium (Protonix Ec Tab) 40 mg PO BID [facility] Last Admin: 10/05/17 14:00 Dose: 40 mg Potassium Chloride (K-Dur 20 Meq Er Tab) 20 meq PO ONCE ONE Stop: 10/05/17 16:01 Results - Vital Signs Recent Vital Signs: Last Vital Signs Temp 98.6 F 10/04/17 22:00 Pulse 116 H 10/05/17 14:53 Resp 20 10/04/17 22:00 BP 145/113 H 10/05/17 14:53 Pulse Ox 96 10/04/17 22:00 - Labs Result Diagrams: 10/05/17 06:00 10/05/17 06:00 Attending/Attestation - Attestation I have personally seen and examined this patient.: Yes I have fully participated in the care of the patient.: Yes I have reviewed all pertinent clinical information: Yes Notes (Text): 10/05/17 15:38 This is a 52 year old M with history of stomach cancer stage IV on chemotherapy presenting with intractable nausea and vomiting now resolving likely due to post chemotherapy. Hematemesis resolved likely from lori camacho tear Plan: -Continue supportive care with pain control and anti-emetics - H/Hct stable. No urgent indication for endoscopic evaluation - Diet as tolerated -Please call with any questions or concerns
[2017-10-05] MEDS ORDERED: Magnesium Sulfate 1 gm in D5W 1 GM/100 ML BAG IVPB ONE (14:50)
[2017-10-05] MEDS: oxyCODONE 10 mg Immediate Release Tab PO PRN (14:54)
--- NOTE | 2017-10-05 15:02 | CP.PCM.PN ---
Subjective - Date & Time of Evaluation Date of Evaluation: 10/05/17 Time of Evaluation: 14:58 - Subjective Subjective: Patient seen and examined at bedside. Small amount of yellow fluid vomit last night reported. Patient reports improvement of pain and less lethargic. She denies any N/V today. Objective - Vital Signs/Intake and Output Vital Signs (last 24 hours): Temp Pulse Resp BP Pulse Ox 98.6 F 85 20 119/80 96 10/04/17 22:00 10/04/17 22:00 10/04/17 22:00 10/04/17 23:50 10/04/17 22:00 Intake and Output: 10/05/17 10/05/17 06:59 18:59 Intake Total 120 1200 Balance 120 1200 - Medications Medications: Current Medications Acetaminophen (Tylenol 325mg Tab) 650 mg PO Q6H PRN PRN Reason: Pain, moderate (4-7) Dextrose (Dextrose 50% Inj) 25 ml IVP ONCE PRN PRN Reason: Hypoglycemia Hydrochlorothiazide (Hydrodiuril) 25 mg PO DAILY [facility] Last Admin: 10/05/17 09:13 Dose: 25 mg Sodium Chloride (Sodium Chloride 0.9%) 1,000 mls @ 100 mls/hr IV .Q10H [facility] Last Admin: 10/05/17 14:01 Dose: 100 mls/hr Magnesium Sulfate/Dextrose (Magnesium Sulfate 1 Gm/100 Ml D5w) 1 gm in 100 mls @ 100 mls/hr IVPB ONCE ONE Stop: 10/05/17 15:49 Insulin Human Lispro (Humalog Low) 0 units SC ACHS [facility] PRN Reason: Protocol Last Admin: 10/05/17 13:57 Dose: Not Given Losartan Potassium (Cozaar) 100 mg PO DAILY [facility] Last Admin: 10/05/17 08:40 Dose: 100 mg Bisoprolol/Hctz [ Ziac 5-6.25 Mg] ( Home Med) 1 tab PO DAILY [facility] Last Admin: 10/05/17 13:57 Dose: Not Given Ondansetron HCl (Zofran Inj) 4 mg IVP Q6H PRN PRN Reason: Nausea/Vomiting Oxycodone HCl (Oxycodone Immediate Release Tab) 10 mg PO Q6 PRN PRN Reason: Pain, Mild (1-3) Stop: 10/07/17 05:22 Last Admin: 10/04/17 18:52 Dose: 10 mg Pantoprazole Sodium (Protonix Ec Tab) 40 mg PO BID [facility] Last Admin: 10/05/17 14:00 Dose: 40 mg Potassium Chloride (K-Dur 20 Meq Er Tab) 20 meq PO ONCE ONE Stop: 10/05/17 16:01 - Labs Labs: 10/05/17 06:00 10/05/17 06:00 PT 14.2 SECONDS (9.4-12.5) H 10/05/17 06:00 INR 1.23 (0.93-1.08) H 10/05/17 06:00 APTT 30.2 Seconds (25.1-36.5) 10/05/17 06:00 - Additional Findings Additional findings: - Constitutional Appears: Non-toxic, No Acute Distress, Chronically Ill. - Head Exam Head Exam: ATRAUMATIC, NORMOCEPHALIC - Eye Exam Eye Exam: EOMI, PERRL. absent: Conjunctival injection, Nystagmus, Scleral icterus Pupil Exam: NORMAL ACCOMODATION, PERRL. absent: Irregular, Miosis, Mydriatic, Unequal - ENT Exam ENT Exam: Mucous Membranes Dry - Neck Exam Neck exam: Positive for: Full Rom - Respiratory Exam Respiratory Exam: Clear to Auscultation Bilateral, NORMAL BREATHING PATTERN. absent: Accessory Muscle Use, Rales, Rhonchi, Wheezes, Stridor - Cardiovascular Exam Cardiovascular Exam: RRR, +S1, +S2. absent: Systolic Murmur - GI/Abdominal Exam GI & Abdominal Exam: Normal Bowel Sounds, Soft. absent: Distended, Firm, Guarding, Mass, Organomegaly, Rebound, Rigid, Tenderness Additional comments: no fluid wave or ascites appreciated/ no caput medusae - Extremities Exam Extremities exam: Positive for: normal inspection. Negative for: calf tenderness, pedal edema - Back Exam Back exam: NORMAL INSPECTION - Neurological Exam Neurological exam: Alert, Oriented x3 - Psychiatric Exam Psychiatric exam: Normal Affect, Normal Mood - Skin Skin Exam: Dry, Normal Color, Warm Assessment and Plan - Assessment and Plan (Free Text) Assessment: 52 year old female with PMH stomach cancer (currently on chemotherapy, last one 2 weeks ago), HTN, DM, chronic nausea/vomiting and abdominal pain, admitted for n/v/abdominal pain: Plan: Generalized weakness/fatigue and nausea/vomiting (Improved): 2/2 chemotherapy SE, ruled out anemia 2/2 vomiting up mild red blood, unlikely SBP - CT abd pelvis (Adm): Small to moderate amount of ascites. Enlarged retroperitoneal lymph node - Neutropenic precautions - Carb consistent diet - Zofran prn - Blood Cultures: NEGATIVE - ProCal: NEGATIVE - Pain Control: Tylenol. - Heme/Onc Consulted (Dr. Miles), Rec appreciated Granix given once yesterday -GI Consulted (Dr. Schneider) Started NS @ 100 mls/hr. Hx of HTN: - elevated BP - Norvasc 5 given once. - resume home meds - cont to monitor Hx of DM: - ISS med PPX: Protonix, SCDs Diet: Carb Consistent Diet Patient Discussed with Attending. Kady Antunez, PGY-1
[2017-10-05] MEDS ORDERED: Potassium Chloride 20 mEq ER Tab PO ONE (16:00)
[2017-10-06 07:35] LABS: BASO # 0.02 K/mm3 (0.0-2.0); BASO % 0.1 % (0.0-3.0); EOS % 0.1 % (1.5-5.0); GRAN # 9.8 (1.4-6.5); GRAN % 64.4 % (50.0-68.0); HEMOGLOBIN 12.6 g/dL (12.0-16.0); LYMPH # 1.8 (1.2-3.4); LYMPH % 11.8 % (22.0-35.0); MEAN CELL VOLUME 78.1 fl (80.0-105.0); MEAN CORPUSCULAR HGB CONC 33.2 g/dl (31.0-37.0); MEAN PLATELET VOLUME 10.8 fl (7.0-11.0); MONO # 3.6 (0.1-0.6); MONO % 23.6 % (1.0-6.0); RBC 4.85 10^6/uL (3.5-6.1); RED CELL DISTRIBUTION WIDTH 17.3 % (11.5-14.5); WHITE BLOOD COUNT 15.2 10^3/ul (4.5-11.0)
[2017-10-06 07:52] LABS: INR 1.21 (0.93-1.08); PARTIAL THROMBOPLASTIN TIME 32.8 Seconds (25.1-36.5)
[2017-10-06 08:01] LABS: ALB/GLOB RATIO 0.9 (1.1-1.8); ALBUMIN 2.9 g/dL (3.0-4.8); ALT/SGPT 21 U/L (7-56); AST/SGOT 28 U/L (14-36); BLOOD UREA NITROGEN 3 mg/dL (7-21); CALCIUM 8.6 mg/dL (8.4-10.5); GFR AFRICAN-AMERICAN > 60; GFR NON-AFRICAN AMERICAN > 60
[2017-10-06] MEDS: Insulin Lispro (humaLOG) LOW Coverage SC SCH ×4 (08:20→22:07)
[2017-10-06] MEDS: oxyCODONE 10 mg Immediate Release Tab PO PRN ×2 (08:20→17:48)
[2017-10-06] MEDS: Sodium Chloride 0.9% 1,000 ML IV SCH ×2 (11:00→19:11)
[2017-10-06] MEDS: Pantoprazole 40 mg EC Tab PO SCH ×2 (11:00→17:42)
[2017-10-06] MEDS: Bisoprolol/Hctz [Ziac 5-6.25 Mg] (HOME MED) PO SCH (12:26)
--- NOTE | 2017-10-06 12:51 | CP.PCM.PN ---
<Mando Germain - Last Filed: 10/06/17 12:36> Subjective - Date & Time of Evaluation Date of Evaluation: 10/06/17 Time of Evaluation: 11:40 - Subjective Subjective: Subjective: Patient seen and examined. No acute events overnight. States that nausea and vomiting have resolved. Positive for appetite. Willing to participate in physical therapy. More energetic when compared to baseline. Denies fever, chills , chest pain, shortness of breath, abdominal pain, nausea, vomiting, diarrhea, constipation, and urinary symptoms. 12-point review of systems negative except as indicated in the HPI Physical Examination: - Constitutional Appears: Non-toxic, No Acute Distress - Head Exam Head Exam: ATRAUMATIC, NORMOCEPHALIC - Eye Exam Eye Exam: EOMI, PERRL. absent: Conjunctival injection, Nystagmus, Scleral icterus - ENT Exam ENT Exam: Mucous Membranes Dry - Neck Exam Neck exam: Positive for: Full Rom - Respiratory Exam Respiratory Exam: Clear to Auscultation Bilateral, NORMAL BREATHING PATTERN. absent: Accessory Muscle Use, Rales, Rhonchi, Wheezes, Stridor - Cardiovascular Exam Cardiovascular Exam: RRR, +S1, +S2. absent: Systolic Murmur - GI/Abdominal Exam GI & Abdominal Exam: Normal Bowel Sounds, Soft. absent: Distended, Firm, Guarding, Mass, Organomegaly, Rebound, Rigid, Tenderness - Extremities Exam Extremities exam: Positive for: normal inspection. Negative for: calf tenderness, pedal edema - Neurological Exam Neurological exam: Alert, Oriented x3 - Psychiatric Exam Psychiatric exam: Normal Affect, Normal Mood - Skin Skin Exam: Dry, Normal Color, Warm Assessment and Plan: Patient is a 52 year old female with PMHx of stomach cancer (currently on chemotherapy, last one 2 weeks ago), HTN, DM, chronic nausea/vomiting and abdominal pain, admitted for n/v/abdominal pain. Generalized weakness/fatigue and nausea/vomitin/2 chemotherapy SE, ruled out anemia 2/2 vomiting up mild red blood, unlikely SBP - CT abd pelvis: Small to moderate amount of ascites. Enlarged retroperitoneal lymph node - Neutropenic precautions - Coags INR 1.21 - Carb consistent diet- tolerating diet, will consider discontinuing IVF NS 100ml/hr - Blood culture- negative in 48 hours - procal- negative - Zofran prn - Heme Onc consulted- outpatient treatment recommendations - GI consulted- Hemoglobin/hct stable, no urgent indication for endoscopic evaluation Hx of HTN: - elevated BP- reviewed, trended, and appreciated - continue ziac, hctz, losartan Hx of DM: - blood glucoses reviewed, trended, and appreciated - ACHS - ISS med Prophylaxis - PPX: Omeprazole, SCDs - Diet: Carb Consistent Diet Patient seen, case discussed with, and plan approved by attending physician, Dr. Michel. Objective - Vital Signs/Intake and Output Vital Signs (last 24 hours): Temp Pulse Resp BP Pulse Ox 98 F 80 20 142/106 H 100 10/06/17 08:06 10/06/17 08:06 10/06/17 08:06 10/06/17 08:06 10/06/17 08:06 Intake and Output: 10/06/17 10/06/17 06:59 18:59 Intake Total 180 Balance 180 - Medications Medications: Current Medications Acetaminophen (Tylenol 325mg Tab) 650 mg PO Q6H PRN PRN Reason: Pain, moderate (4-7) Dextrose (Dextrose 50% Inj) 25 ml IVP ONCE PRN PRN Reason: Hypoglycemia Hydrochlorothiazide (Hydrodiuril) 25 mg PO DAILY [facility] Last Admin: 10/06/17 10:58 Dose: 25 mg Sodium Chloride (Sodium Chloride 0.9%) 1,000 mls @ 100 mls/hr IV .Q10H [facility] Last Admin: 10/06/17 11:00 Dose: 100 mls/hr Insulin Human Lispro (Humalog Low) 0 units SC [facility] PRN Reason: Protocol Last Admin: 10/06/17 12:26 Dose: Not Given Losartan Potassium (Cozaar) 100 mg PO DAILY [facility] Last Admin: 10/06/17 10:57 Dose: 100 mg Bisoprolol/Hctz [ Ziac 5-6.25 Mg] ( Home Med) 1 tab PO DAILY [facility] Last Admin: 10/06/17 12:26 Dose: Not Given Ondansetron HCl (Zofran Inj) 4 mg IVP Q6H PRN PRN Reason: Nausea/Vomiting Oxycodone HCl (Oxycodone Immediate Release Tab) 10 mg PO Q6 PRN PRN Reason: Pain, Mild (1-3) Stop: 10/07/17 05:22 Last Admin: 10/06/17 08:20 Dose: 10 mg Pantoprazole Sodium (Protonix Ec Tab) 40 mg PO BID [facility] Last Admin: 10/05/17 18:11 Dose: 40 mg - Labs Labs: 10/06/17 07:15 10/06/17 07:15 PT 14.0 SECONDS (9.4-12.5) H 10/06/17 07:15 INR 1.21 (0.93-1.08) H 10/06/17 07:15 APTT 32.8 Seconds (25.1-36.5) 10/06/17 07:15 <Sivakumar Michel - Last Filed: 10/07/17 15:46> Objective - Vital Signs/Intake and Output Vital Signs (last 24 hours): Temp Pulse Resp BP Pulse Ox 98 F 69 18 132/96 H 92 L 10/07/17 14:00 10/07/17 14:00 10/07/17 14:00 10/07/17 14:00 10/07/17 14:00 Intake and Output: 10/07/17 10/07/17 06:59 18:59 Intake Total 660 Balance 660 - Medications Medications: Current Medications Acetaminophen (Tylenol 325mg Tab) 650 mg PO Q6H PRN PRN Reason: Pain, moderate (4-7) Dextrose (Dextrose 50% Inj) 25 ml IVP ONCE PRN PRN Reason: Hypoglycemia Insulin Human Lispro (Humalog Low) 0 units SC [facility] PRN Reason: Protocol Last Admin: 10/07/17 11:53 Dose: Not Given Losartan Potassium (Cozaar) 100 mg PO DAILY [facility] Last Admin: 10/07/17 11:16 Dose: 100 mg Bisoprolol/Hctz [ Ziac 5-6.25 Mg] ( Home Med) 1 tab PO DAILY [facility] Last Admin: 10/07/17 11:13 Dose: Not Given Ondansetron HCl (Zofran Inj) 4 mg IVP Q6H PRN PRN Reason: Nausea/Vomiting Pantoprazole Sodium (Protonix Ec Tab) 40 mg PO BID [facility] Last Admin: 10/07/17 11:16 Dose: 40 mg - Labs Labs: 10/07/17 07:00 10/07/17 07:00 PT 14.0 SECONDS (9.4-12.5) H 10/06/17 07:15 INR 1.21 (0.93-1.08) H 10/06/17 07:15 APTT 32.8 Seconds (25.1-36.5) 10/06/17 07:15 Attending/Attestation - Attestation I have personally seen and examined this patient.: Yes I have fully participated in the care of the patient.: Yes I have reviewed all pertinent clinical information, including history, physical exam and plan: Yes Notes (Text): 10/07/17 15:37 attending note; Patient seen and examined with resident. Patient is a 52 year old female with PMHx of stomach cancer (currently on chemotherapy, last one 2 weeks ago),hypertension, diabetes is admitted with nausea and vomiting post chemotherapy. patient was also found to be pancytopenic. treated wirh Granix. Currently WBC count is improved. Patient is afebrile and nontoxic. Patient had one episode of hematemesis which was resolved. GI evaluation appreciated. Needs outpatient workup. PT evaluation requested. Upon discharge the patient will follow-up with PMD Dr. Dalton and Oncology Dr. Willam loving.
--- NOTE | 2017-10-06 23:28 | CP.PCM.PN ---
Subjective - Date & Time of Evaluation Date of Evaluation: 10/06/17 Time of Evaluation: 18:15 - Subjective Subjective: Feeling better, appetite and energy level improving. Objective - Vital Signs/Intake and Output Vital Signs (last 24 hours): Temp Pulse Resp BP Pulse Ox 98 F 77 18 131/100 H 100 10/06/17 14:51 10/06/17 14:51 10/06/17 14:51 10/06/17 14:51 10/06/17 14:51 Intake and Output: 10/06/17 10/07/17 18:59 06:59 Intake Total 560 660 Balance 560 660 - Medications Medications: Current Medications Acetaminophen (Tylenol 325mg Tab) 650 mg PO Q6H PRN PRN Reason: Pain, moderate (4-7) Dextrose (Dextrose 50% Inj) 25 ml IVP ONCE PRN PRN Reason: Hypoglycemia Sodium Chloride (Sodium Chloride 0.9%) 1,000 mls @ 100 mls/hr IV .Q10H [facility] Last Admin: 10/06/17 19:11 Dose: 100 mls/hr Insulin Human Lispro (Humalog Low) 0 units SC ACHS [facility] PRN Reason: Protocol Last Admin: 10/06/17 22:07 Dose: Not Given Losartan Potassium (Cozaar) 100 mg PO DAILY [facility] Last Admin: 10/06/17 10:57 Dose: 100 mg Bisoprolol/Hctz [ Ziac 5-6.25 Mg] ( Home Med) 1 tab PO DAILY [facility] Last Admin: 10/06/17 12:26 Dose: Not Given Ondansetron HCl (Zofran Inj) 4 mg IVP Q6H PRN PRN Reason: Nausea/Vomiting Oxycodone HCl (Oxycodone Immediate Release Tab) 10 mg PO Q6 PRN PRN Reason: Pain, Mild (1-3) Stop: 10/07/17 05:22 Last Admin: 10/06/17 17:48 Dose: 10 mg Pantoprazole Sodium (Protonix Ec Tab) 40 mg PO BID [facility] Last Admin: 10/06/17 17:42 Dose: 40 mg - Labs Labs: 10/06/17 07:15 10/06/17 07:15 PT 14.0 SECONDS (9.4-12.5) H 10/06/17 07:15 INR 1.21 (0.93-1.08) H 10/06/17 07:15 APTT 32.8 Seconds (25.1-36.5) 10/06/17 07:15 - Head Exam Head Exam: ATRAUMATIC - Eye Exam Eye Exam: Normal appearance - ENT Exam ENT Exam: Mucous Membranes Dry - Respiratory Exam Respiratory Exam: NORMAL BREATHING PATTERN - Cardiovascular Exam Cardiovascular Exam: +S1, +S2 - GI/Abdominal Exam GI & Abdominal Exam: Normal Bowel Sounds Assessment and Plan (1) Gastric cancer Assessment & Plan: stage IV outpatient treatment Status: Acute
[2017-10-07] MEDS: oxyCODONE 10 mg Immediate Release Tab PO PRN ×2 (00:04→06:37)
[2017-10-07 07:28] LABS: BASO # 0.02 K/mm3 (0.0-2.0); BASO % 0.1 % (0.0-3.0); EOS # 0.1 (0.0-0.7); EOS % 0.3 % (1.5-5.0); GRAN # 12.85 (1.4-6.5); GRAN % 68.1 % (50.0-68.0); HEMOGLOBIN 11.2 g/dL (12.0-16.0); LYMPH # 2.3 (1.2-3.4); LYMPH % 12.2 % (22.0-35.0); MEAN CELL VOLUME 78.1 fl (80.0-105.0); MEAN CORPUSCULAR HEMOGLOBIN 25.9 pg (25.0-35.0); MEAN CORPUSCULAR HGB CONC 33.1 g/dl (31.0-37.0); MEAN PLATELET VOLUME 10.2 fl (7.0-11.0); MONO # 3.6 (0.1-0.6); MONO % 19.3 % (1.0-6.0); RBC 4.33 10^6/uL (3.5-6.1); RED CELL DISTRIBUTION WIDTH 17.4 % (11.5-14.5); WHITE BLOOD COUNT 18.9 10^3/ul (4.5-11.0)
[2017-10-07 07:39] LABS: BLOOD UREA NITROGEN 3 mg/dL (7-21); CALCIUM 8.1 mg/dL (8.4-10.5); GFR AFRICAN-AMERICAN > 60; GFR NON-AFRICAN AMERICAN > 60
[2017-10-07] MEDS: Insulin Lispro (humaLOG) LOW Coverage SC SCH ×3 (07:49→17:43)
[2017-10-07] MEDS ORDERED: Potassium Chloride 40 mEq/30 ml LIQ UD PO ONE (07:57)
--- NOTE | 2017-10-07 10:34 | CP.PCM.DIS ---
<Mando Germain - Last Filed: 10/07/17 10:31> Provider - Provider Date of Admission: 10/05/17 14:50 Attending physician: Sivakumar Michel MD Primary care physician: Iris Dalton MD Time Spent in preparation of Discharge (in minutes): 45 Diagnosis - Discharge Diagnosis (1) Hematemesis Status: Resolved Priority: Medium (2) Anemia Status: Chronic Priority: Medium (3) Gastric cancer Status: Acute Priority: High (4) Neutropenia Status: Resolved Priority: Medium Hospital Course - Lab Results Lab Results: Most Recent Lab Values WBC 18.9 10^3/ul (4.5-11.0) H D 10/07/17 07:00 RBC 4.33 10^6/uL (3.5-6.1) 10/07/17 07:00 Hgb 11.2 g/dL (12.0-16.0) L 10/07/17 07:00 Hct 33.8 % (36.0-48.0) L 10/07/17 07:00 MCV 78.1 fl (80.0-105.0) L 10/07/17 07:00 MCH 25.9 pg (25.0-35.0) 10/07/17 07:00 MCHC 33.1 g/dl (31.0-37.0) 10/07/17 07:00 RDW 17.4 % (11.5-14.5) H 10/07/17 07:00 Plt Count 273 10^3/uL (120.0-450.0) 10/07/17 07:00 MPV 10.2 fl (7.0-11.0) 10/07/17 07:00 Gran % 68.1 % (50.0-68.0) H 10/07/17 07:00 Lymph % (Auto) 12.2 % (22.0-35.0) L 10/07/17 07:00 Greer % (Auto) 19.3 % (1.0-6.0) H 10/07/17 07:00 Eos % (Auto) 0.3 % (1.5-5.0) L 10/07/17 07:00 Baso % (Auto) 0.1 % (0.0-3.0) 10/07/17 07:00 Gran # 12.85 (1.4-6.5) H 10/07/17 07:00 Lymph # (Auto) 2.3 (1.2-3.4) 10/07/17 07:00 Greer # (Auto) 3.6 (0.1-0.6) H 10/07/17 07:00 Eos # (Auto) 0.1 (0.0-0.7) 10/07/17 07:00 Baso # (Auto) 0.02 K/mm3 (0.0-2.0) 10/07/17 07:00 Neutrophils % (Manual) 10 % (50.0-70.0) L 10/03/17 21:15 Band Neutrophils % 4 % (0-2) H 10/03/17 21:15 Lymphocytes % (Manual) 42 % (22.0-35.0) H 10/03/17 21:15 Atypical Lymphs % 6 % (0.0-0.0) H 10/03/17 21:15 Monocytes % (Manual) 37 % (1.0-6.0) H 10/03/17 21:15 Eosinophils % (Manual) 1 % (0.0-3.0) 10/03/17 21:15 Platelet Evaluation Normal (NORMAL) 10/03/17 21:15 PT 14.0 SECONDS (9.4-12.5) H 10/06/17 07:15 INR 1.21 (0.93-1.08) H 10/06/17 07:15 APTT 32.8 Seconds (25.1-36.5) 10/06/17 07:15 Sodium 136 mmol/L (132-148) 10/07/17 07:00 Potassium 3.0 mmol/L (3.6-5.0) L 10/07/17 07:00 Chloride 103 mmol/L (98-107) 10/07/17 07:00 Carbon Dioxide 26 mmol/L (21-33) 10/07/17 07:00 Anion Gap 10 (10-20) 10/07/17 07:00 BUN 3 mg/dL (7-21) L 10/07/17 07:00 Creatinine 0.8 mg/dl (0.7-1.2) 10/07/17 07:00 Est GFR ( Amer) > 60 10/07/17 07:00 Est GFR (Non-Af Amer) > 60 10/07/17 07:00 POC Glucose (mg/dL) 73 mg/dL (65-110) 10/06/17 21:02 Random Glucose 68 mg/dL (70-110) L 10/07/17 07:00 Calcium 8.1 mg/dL (8.4-10.5) L 10/07/17 07:00 Magnesium 1.6 mg/dL (1.7-2.2) L 10/07/17 07:00 Total Bilirubin 0.5 mg/dL (0.2-1.3) 10/06/17 07:15 AST 28 U/L (14-36) 10/06/17 07:15 ALT 21 U/L (7-56) 10/06/17 07:15 Alkaline Phosphatase 66 U/L (38-126) 10/06/17 07:15 Total Protein 6.0 g/dL (5.8-8.3) 10/06/17 07:15 Albumin 2.9 g/dL (3.0-4.8) L 10/06/17 07:15 Globulin 3.1 gm/dL 10/06/17 07:15 Albumin/Globulin Ratio 0.9 (1.1-1.8) L 10/06/17 07:15 Lipase 161 U/L (23-300) 10/03/17 21:15 Procalcitonin < 0.05 NG/ML (0.19-0.49) L 10/04/17 06:20 Urine Color Light yellow (YELLOW) 10/04/17 14:45 Urine Appearance Clear (CLEAR) 10/04/17 14:45 Urine pH 7.5 (4.7-8.0) 10/04/17 14:45 Ur Specific [place] 1.010 (1.005-1.035) 10/04/17 14:45 Urine Protein Negative mg/dL (<30 mg/dL) 10/04/17 14:45 Urine Glucose (UA) Negative mg/dL (NEGATIVE) 10/04/17 14:45 Urine Ketones Trace mg/dL (NEGATIVE) H 10/04/17 14:45 Urine Blood Negative (NEGATIVE) 10/04/17 14:45 Urine Nitrate Negative (NEGATIVE) 10/04/17 14:45 Urine Bilirubin Negative (NEGATIVE) 10/04/17 14:45 Urine Urobilinogen 0.2 E.U./dL (<1 E.U./dL) 10/04/17 14:45 Ur Leukocyte Esterase Negative Gerber/uL (NEGATIVE) 10/04/17 14:45 - Hospital Course Hospital Course: Patient is a 52 year old female with a past medical history of stomach cancer, HTN, DM, chronic nausea/vomiting and abdominal pain, who was admitted for evaluation of abdominal pain, nausea, vomiting, and blood in emesis. With the use of physical examinations, lab work, and imaging the patient was diagnosed with and treated for a GI bleed likely secondary to a lori camacho tear, along with the patients chronic medical conditions. During their hospital stay the patient was seen by gastroenterology (Dr. Schneider) and heme/onc (Dr. Miles) whose recommendations were both appreciated and utilized in the care for this patient. Dr. Miles recommended no acute inpatient intervention and continued outpatient treatment. Dr. Schneider recommended continued supportive care with pain control and anti-emetics and no EGD during this visit. During their hospital stay the patient underwent a CT of the abdomen/pelvis and chest xray which were reviewed, appreciated, and utilized in the management of the patients clinical course. The CT of the abdomen showed small to moderate amount of ascites, enlarged retroperitoneal lymph node, and myomatous uterus. Patient was treated with antihypertensive medications amongst other empiric/therapeutic medications. At this time the patient is medically stable for discharge. Patient understands and appreciates discharge plan. Patient instructed to follow up with primary care physicians and referrals within three to five days from discharge. Furthermore, the patient is instructed to take medications as prescribed and to return to emergency room for evaluation of intractable headache, fever, chills, dizziness, chest pain, shortness of breath, abdominal pain, nausea, vomiting, diarrhea, constipation, and urinary symptoms. This is a brief summary of the patients hospital course. Please see patient chart for full details. Discharge Exam - Head Exam Head Exam: ATRAUMATIC - Additional Findings Additional findings: - Constitutional Appears: Non-toxic, No Acute Distress - Head Exam Head Exam: ATRAUMATIC, NORMOCEPHALIC - Eye Exam Eye Exam: EOMI, PERRL. absent: Conjunctival injection, Nystagmus, Scleral icterus - ENT Exam ENT Exam: Mucous Membranes Dry - Neck Exam Neck exam: Positive for: Full Rom - Respiratory Exam Respiratory Exam: Clear to Auscultation Bilateral, NORMAL BREATHING PATTERN. absent: Accessory Muscle Use, Rales, Rhonchi, Wheezes, Stridor - Cardiovascular Exam Cardiovascular Exam: RRR, +S1, +S2. absent: Systolic Murmur - GI/Abdominal Exam GI & Abdominal Exam: Normal Bowel Sounds, Soft. absent: Distended, Firm, Guarding, Mass, Organomegaly, Rebound, Rigid, Tenderness - Extremities Exam Extremities exam: Positive for: normal inspection. Negative for: calf tenderness, pedal edema - Neurological Exam Neurological exam: Alert, Oriented x3 - Psychiatric Exam Psychiatric exam: Normal Affect, Normal Mood - Skin Skin Exam: Dry, Normal Color, Warm Discharge Plan - Follow Up Plan Condition: STABLE Disposition: HOME/ ROUTINE Patient education suggested?: Yes Additional Instructions: Patient Instructions: Take medications as prescribed. Follow up with PMD and referrals within three to five days from discharge. Return to the emergency room for evaluation of intractable headache, fever, chills, dizziness, chest pain, shortness of breath, abdominal pain, nausea, vomiting, diarrhea, constipation, and urinary symptoms. Referrals: Iris Dalton MD [Primary Care Provider] - Willam Miles MD [Staff Provider] - Jennifer Schneider MD [Medical Doctor] - <Sivakumar Michel - Last Filed: 10/07/17 15:47> Provider - Provider Date of Admission: 10/05/17 14:50 Attending physician: Sivakumar Michel MD Primary care physician: Iris Dalton MD Hospital Course - Lab Results Lab Results: Most Recent Lab Values WBC 18.9 10^3/ul (4.5-11.0) H D 10/07/17 07:00 RBC 4.33 10^6/uL (3.5-6.1) 10/07/17 07:00 Hgb 11.2 g/dL (12.0-16.0) L 10/07/17 07:00 Hct 33.8 % (36.0-48.0) L 10/07/17 07:00 MCV 78.1 fl (80.0-105.0) L 10/07/17 07:00 MCH 25.9 pg (25.0-35.0) 10/07/17 07:00 MCHC 33.1 g/dl (31.0-37.0) 10/07/17 07:00 RDW 17.4 % (11.5-14.5) H 10/07/17 07:00 Plt Count 273 10^3/uL (120.0-450.0) 10/07/17 07:00 MPV 10.2 fl (7.0-11.0) 10/07/17 07:00 Gran % 68.1 % (50.0-68.0) H 10/07/17 07:00 Lymph % (Auto) 12.2 % (22.0-35.0) L 10/07/17 07:00 Greer % (Auto) 19.3 % (1.0-6.0) H 10/07/17 07:00 Eos % (Auto) 0.3 % (1.5-5.0) L 10/07/17 07:00 Baso % (Auto) 0.1 % (0.0-3.0) 10/07/17 07:00 Gran # 12.85 (1.4-6.5) H 10/07/17 07:00 Lymph # (Auto) 2.3 (1.2-3.4) 10/07/17 07:00 Greer # (Auto) 3.6 (0.1-0.6) H 10/07/17 07:00 Eos # (Auto) 0.1 (0.0-0.7) 10/07/17 07:00 Baso # (Auto) 0.02 K/mm3 (0.0-2.0) 10/07/17 07:00 Neutrophils % (Manual) 10 % (50.0-70.0) L 10/03/17 21:15 Band Neutrophils % 4 % (0-2) H 10/03/17 21:15 Lymphocytes % (Manual) 42 % (22.0-35.0) H 10/03/17 21:15 Atypical Lymphs % 6 % (0.0-0.0) H 10/03/17 21:15 Monocytes % (Manual) 37 % (1.0-6.0) H 10/03/17 21:15 Eosinophils % (Manual) 1 % (0.0-3.0) 10/03/17 21:15 Platelet Evaluation Normal (NORMAL) 10/03/17 21:15 PT 14.0 SECONDS (9.4-12.5) H 10/06/17 07:15 INR 1.21 (0.93-1.08) H 10/06/17 07:15 APTT 32.8 Seconds (25.1-36.5) 10/06/17 07:15 Sodium 136 mmol/L (132-148) 10/07/17 07:00 Potassium 3.0 mmol/L (3.6-5.0) L 10/07/17 07:00 Chloride 103 mmol/L (98-107) 10/07/17 07:00 Carbon Dioxide 26 mmol/L (21-33) 10/07/17 07:00 Anion Gap 10 (10-20) 10/07/17 07:00 BUN 3 mg/dL (7-21) L 10/07/17 07:00 Creatinine 0.8 mg/dl (0.7-1.2) 10/07/17 07:00 Est GFR ( Amer) > 60 10/07/17 07:00 Est GFR (Non-Af Amer) > 60 10/07/17 07:00 POC Glucose (mg/dL) 80 mg/dL (65-110) 10/07/17 11:13 Random Glucose 68 mg/dL (70-110) L 10/07/17 07:00 Calcium 8.1 mg/dL (8.4-10.5) L 10/07/17 07:00 Magnesium 1.6 mg/dL (1.7-2.2) L 10/07/17 07:00 Total Bilirubin 0.5 mg/dL (0.2-1.3) 10/06/17 07:15 AST 28 U/L (14-36) 10/06/17 07:15 ALT 21 U/L (7-56) 10/06/17 07:15 Alkaline Phosphatase 66 U/L (38-126) 10/06/17 07:15 Total Protein 6.0 g/dL (5.8-8.3) 10/06/17 07:15 Albumin 2.9 g/dL (3.0-4.8) L 10/06/17 07:15 Globulin 3.1 gm/dL 10/06/17 07:15 Albumin/Globulin Ratio 0.9 (1.1-1.8) L 10/06/17 07:15 Lipase 161 U/L (23-300) 10/03/17 21:15 Procalcitonin < 0.05 NG/ML (0.19-0.49) L 10/04/17 06:20 Urine Color Light yellow (YELLOW) 10/04/17 14:45 Urine Appearance Clear (CLEAR) 10/04/17 14:45 Urine pH 7.5 (4.7-8.0) 10/04/17 14:45 Ur Specific [place] 1.010 (1.005-1.035) 10/04/17 14:45 Urine Protein Negative mg/dL (<30 mg/dL) 10/04/17 14:45 Urine Glucose (UA) Negative mg/dL (NEGATIVE) 10/04/17 14:45 Urine Ketones Trace mg/dL (NEGATIVE) H 10/04/17 14:45 Urine Blood Negative (NEGATIVE) 10/04/17 14:45 Urine Nitrate Negative (NEGATIVE) 10/04/17 14:45 Urine Bilirubin Negative (NEGATIVE) 10/04/17 14:45 Urine Urobilinogen 0.2 E.U./dL (<1 E.U./dL) 10/04/17 14:45 Ur Leukocyte Esterase Negative Gerber/uL (NEGATIVE) 10/04/17 14:45 Attending/Attestation - Attestation I have personally seen and examined this patient.: Yes I have fully participated in the care of the patient.: Yes I have reviewed all pertinent clinical information, including history, physical exam and plan: Yes Notes (Text): 10/07/17 15:46 attending note; Patient seen and examined with resident. Patient is a 52 year old female with PMHx of stomach cancer (currently on chemotherapy, last one 2 weeks ago),hypertension, diabetes is admitted with nausea and vomiting post chemotherapy. treated with IV fluids. patient was also found to be pancytopenic. treated wirh Granix. Currently WBC count is improved. Patient is afebrile and nontoxic. tolerating diet. Denies any nausea, vomiting. Patient had one episode of hematemesis which was resolved. GI evaluation appreciated. Needs outpatient workup. PT evaluation appreciated. Patient will be discharged home today. Upon discharge the patient will follow-up with PMD Dr. Dalton and Oncology Dr. Willam miles.
[2017-10-07] MEDS ORDERED: Magnesium Sulfate 1 gm in D5W 1 GM/100 ML BAG IVPB ONE (10:49)
[2017-10-07] MEDS: Bisoprolol/Hctz [Ziac 5-6.25 Mg] (HOME MED) PO SCH (11:13)
[2017-10-07] MEDS: Pantoprazole 40 mg EC Tab PO SCH ×2 (11:16→17:44)
[2017-10-07 15:36] VITALS: BP 132/96; PULSE 69; RESP 18; TEMP 98; O2SAT 92
[2017-10-07] MEDS ORDERED: Potassium Chloride 20 mEq ER Tab PO STA (15:44)
--- NOTE | 2017-10-07 19:10 | CP.PCM.PN ---
Subjective - Date & Time of Evaluation Date of Evaluation: 10/07/17 Time of Evaluation: 10:00 - Subjective Subjective: Feeling better Objective - Vital Signs/Intake and Output Vital Signs (last 24 hours): Temp Pulse Resp BP Pulse Ox 98 F 69 18 132/96 H 92 L 10/07/17 14:00 10/07/17 14:00 10/07/17 14:00 10/07/17 14:00 10/07/17 14:00 - Medications Medications: Current Medications Acetaminophen (Tylenol 325mg Tab) 650 mg PO Q6H PRN PRN Reason: Pain, moderate (4-7) Dextrose (Dextrose 50% Inj) 25 ml IVP ONCE PRN PRN Reason: Hypoglycemia Insulin Human Lispro (Humalog Low) 0 units SC ACHS [facility] PRN Reason: Protocol Last Admin: 10/07/17 17:43 Dose: Not Given Losartan Potassium (Cozaar) 100 mg PO DAILY [facility] Last Admin: 10/07/17 11:16 Dose: 100 mg Bisoprolol/Hctz [ Ziac 5-6.25 Mg] ( Home Med) 1 tab PO DAILY [facility] Last Admin: 10/07/17 11:13 Dose: Not Given Ondansetron HCl (Zofran Inj) 4 mg IVP Q6H PRN PRN Reason: Nausea/Vomiting Pantoprazole Sodium (Protonix Ec Tab) 40 mg PO BID [facility] Last Admin: 10/07/17 17:44 Dose: Not Given - Labs Labs: 10/07/17 07:00 10/07/17 07:00 PT 14.0 SECONDS (9.4-12.5) H 10/06/17 07:15 INR 1.21 (0.93-1.08) H 10/06/17 07:15 APTT 32.8 Seconds (25.1-36.5) 10/06/17 07:15 - Head Exam Head Exam: ATRAUMATIC - Eye Exam Eye Exam: Normal appearance - ENT Exam ENT Exam: Mucous Membranes Dry - Respiratory Exam Respiratory Exam: NORMAL BREATHING PATTERN - Cardiovascular Exam Cardiovascular Exam: +S1, +S2 - GI/Abdominal Exam GI & Abdominal Exam: Normal Bowel Sounds Assessment and Plan (1) Gastric cancer Assessment & Plan: stage IV outpatient chemotherapy Status: Acute
== END 2017-10-07 20:32 | disposition home or self-care (01) | DRG 894 ==
LOC: ED 20:59 → ERH 10-04 02:17 → 5RSO 10-04 03:58 → OBSVTOIN 10-05 14:50
PROVIDERS: ADMIT Hospitalist; ATTEND Internal Medicine
DX: K22.6 Gastro-esophageal laceration-hemorrhage syndrome (principal); C16.9 Malignant neoplasm of stomach, unspecified; D61.818 Other pancytopenia; D63.0 Anemia in neoplastic disease; I10 Essential (primary) hypertension; E11.9 Type 2 diabetes mellitus without complications; Z79.84 Long term (current) use of oral hypoglycemic drugs; Z88.6 Allergy status to analgesic agent

== ENCOUNTER 2018-04-14 13:37 | Day surgery (SDC) | payer MEDICAID ==
[2018-04-14 14:19] VITALS: RESP 18; TEMP 97.4; O2SAT 97
[2018-04-14 14:26] LABS: BASO # 0.01 K/mm3 (0.0-2.0); BASO % 0.2 % (0.0-3.0); EOS % 0.6 % (1.5-5.0); GRAN # 4.1 (1.4-6.5); GRAN % 80.6 % (50.0-68.0); LYMPH # 0.5 (1.2-3.4); LYMPH % 10.2 % (22.0-35.0); MEAN CELL VOLUME 88.6 fl (80.0-105.0); MEAN CORPUSCULAR HEMOGLOBIN 29.2 pg (25.0-35.0); MEAN PLATELET VOLUME 9.4 fl (7.0-11.0); MONO # 0.4 (0.1-0.6); MONO % 8.4 % (1.0-6.0); RBC 3.08 10^6/uL (3.5-6.1); RED CELL DISTRIBUTION WIDTH 17.8 % (11.5-14.5); WHITE BLOOD COUNT 5.1 10^3/ul (4.5-11.0)
[2018-04-14 14:36] LABS: BLOOD UREA NITROGEN 15 mg/dL (7-21); CALCIUM 8.1 mg/dL (8.4-10.5); GFR NON-AFRICAN AMERICAN 53
[2018-04-14 14:48] LABS: INR 1.13
[2018-04-14 15:17] VITALS: BMI 22.0
[2018-04-14 16:24] VITALS: PULSE 72
--- NOTE | 2018-04-14 16:52 | US ---
PROCEDURE: Ultrasound guided paracentesis. HISTORY: Gastric carcinoma. New onset ascites. Evaluate for malignant effusion PHYSICIAN(S): Chuy Downey MD. TECHNIQUE: The relative risks and indications for the procedure were explained to the patient and informed written consent obtained. Sonography of the abdomen was performed in a supine position. This revealed a small to moderate amount of non-loculated ascites, greatest in the right lower quadrant. A puncture site was selected and the area was prepped and draped in the usual sterile fashion. 1% Xylocaine was used to anesthetize the skin and soft tissues. A 7 [place] paracentesis catheter was trocared into the right lower quadrantand 1200 cc of straw-colored fluid aspirated. Cytology in markers were sent for IMPRESSION: Ultrasound-guided paracentesis in the right lower quadrant. 1200 cc of fluid were aspirated. Cytology and markers were sent
[2018-04-14 17:49] VITALS: BP 112/70
== END 2018-04-14 17:45 | disposition home or self-care (01) ==
LOC: OPSURG 13:37 → SDS 13:37 → OPSURG 17:45
PROVIDERS: ATTEND Radiology Vascular & Interventional Radiology
DX: R18.0 Malignant ascites (principal); C16.9 Malignant neoplasm of stomach, unspecified
CPT/HCPCS: 36415; 49083; 80048; 85025; 85610; 88108; 88305; J1642